=== PATIENT | male | born 1985 | race African-American/Black ===

== ENCOUNTER 2019-01-02 21:04 | Emergency (ER) | payer SELFPAY ==
[2019-01-02 21:26] VITALS: BP 116/72
--- NOTE | 2019-01-02 21:28 | Event Note ---
ED Screening Note Date of service: 01/02/19 Time: 21:26 ED Screening Note: This is a 33 y.o. M. that presents to the ER with abscess to right distal forearm x 3 days. Reports drainage Denies fever, chills, numbness or tingling This initial assessment/diagnostic orders/clinical plan/treatment(s) is/are subject to change based on patients health status, clinical progression and re- assessment by fellow clinical providers in the ED. Further treatment and workup at subsequent clinical providers discretion. Patient/guardian urged not to elope from the ED as their condition may be serious if not clinically assessed and managed. Initial orders include:
--- NOTE | 2019-01-02 22:20 | Emergency Department Report ---
ED General Adult HPI - General Chief complaint: Skin/Abscess/Foreign Body Stated complaint: SKIN INFECTION Time Seen by Provider: 01/02/19 21:25 Source: patient Mode of arrival: Ambulatory Limitations: No Limitations - History of Present Illness Initial comments: 33 yo male states that he has a boil on his R wrist that is swollen, red and has a discharge. He states that it has been present x 3 days. -: Gradual Location: right, upper extremity Radiation: distal Severity scale (0 -10): 10 Quality: aching Consistency: constant Improves with: none Worsens with: none Associated Symptoms: denies other symptoms Treatments Prior to Arrival: none - Related Data Previous Rx's Medication Instructions Recorded Last Taken Type cephALEXin [Keflex] 500 mg PO BID 10 Days #20 cap 01/02/19 Unknown Rx Allergies Allergy/AdvReac Type Severity Reaction Status Date / Time clindamycin Allergy Itching Verified 01/02/19 21:08 ED Review of Systems ROS: Stated complaint: SKIN INFECTION Other details as noted in HPI Constitutional: no symptoms reported Eyes: denies: eye pain, vision change ENT: denies: ear pain, throat pain, dental pain Respiratory: no symptoms reported Cardiovascular: denies: chest pain, palpitations, dyspnea on exertion Endocrine: no symptoms reported Gastrointestinal: denies: abdominal pain, nausea, vomiting Genitourinary: denies: urgency, dysuria, frequency Musculoskeletal: denies: back pain, joint swelling Skin: lesions, change in color. denies: rash Neurological: denies: headache, weakness, numbness, paresthesias Psychiatric: denies: anxiety, depression, auditory hallucinations Hematological/Lymphatic: denies: easy bleeding, easy bruising, swollen glands ED Past Medical Hx - Past Medical History Previous Medical History?: No Hx Hypertension: No Hx CVA: No Hx Heart Attack/AMI: No Hx Congestive Heart Failure: No Hx Diabetes: No Hx Deep Vein Thrombosis: No Hx Pulmonary Embolism: No Hx GERD: No Hx Liver Disease: No Hx Renal Disease: No Hx of Cancer: No Hx Sickle Cell Disease: No Hx Arthritis: No Hx Headaches / Migraines: No Hx Seizures: No Hx Kidney Stones: No Hx Psychiatric Treatment: No Hx Asthma: No Hx COPD: No - Surgical History Past Surgical History?: No - Social History Smoking Status: Never Smoker Substance Use Type: None - Medications Home Medications: Home Medications Medication Instructions Recorded Confirmed Last Taken Type cephALEXin [Keflex] 500 mg PO BID 10 Days #20 cap 01/02/19 Unknown Rx ED Physical Exam - General Limitations: No Limitations General appearance: alert, in no apparent distress, appears intoxicated - Head Head exam: Present: atraumatic, normocephalic, normal inspection - Eye Eye exam: Present: normal appearance, PERRL - ENT ENT exam: Present: normal exam, normal orophraynx - Neck Neck exam: Present: tenderness, full ROM - Respiratory Respiratory exam: Present: normal lung sounds bilaterally, respiratory distress - Cardiovascular Cardiovascular Exam: Present: regular rate, normal rhythm, normal heart sounds - GI/Abdominal GI/Abdominal exam: Present: soft. Absent: distended, tenderness - Extremities Exam Extremities exam: Present: normal inspection, other (R forearm redness and tenderness at wrist; medium-size round lesion at the doral wrist with diffuse eythema and warmth) - Back Exam Back exam: Present: normal inspection, full ROM - Neurological Exam Neurological exam: Present: alert, altered, oriented X3 - Psychiatric Psychiatric exam: Present: normal affect, normal mood - Skin Skin exam: Present: warm (lesion at right wrist) ED Course Vital Signs 01/02/19 21:22 Temperature 97.8 F Pulse Rate 81 Respiratory 18 Rate Blood Pressure 116/72 O2 Sat by Pulse 96 Oximetry ED Medical Decision Making - Medical Decision Making 3 yo male states that he has a boil on his R wrist that is swollen, red and has a discharge. He states that it has been present x 3 days. Pt was informed that his R wrist lesion is due to a cellulitis. He states that he is up to date on his Tetanus immun. The pt was instructed to take the antibiotics as directed and to and apply a warm compress 15-20 min twice a day to the affected area. Critical care attestation.: If time is entered above; I have spent that time in minutes in the direct care of this critically ill patient, excluding procedure time. ED Disposition Clinical Impression: Cellulitis Disposition: DC-01 TO HOME OR SELFCARE Is pt being admited?: No Does the pt Need Aspirin: No Condition: Stable Instructions: Cellulitis (ED) Additional Instructions: he pt was instructed to take the antibiotics as directed and to and apply a warm compress 15-20 min twice a day to the affected area. Prescriptions: cephALEXin [Keflex] 500 mg PO BID 10 Days #20 cap Referrals: [facility] [Outside] - 3-5 Days Time of Disposition: 22:27 Print Language: MALDIVIAN
== END 2019-01-02 22:35 | disposition home or self-care (01) ==
LOC: ED 21:04
DX: L03.113 Cellulitis of right upper limb (principal); Z88.1 Allergy status to other antibiotic agents

== ENCOUNTER 2019-06-20 10:08 | Emergency (ER) | payer BC ==
--- NOTE | 2019-06-20 11:15 | Emergency Department Report ---
- General Chief Complaint: Upper Respiratory Infection Stated Complaint: SOB,COUGH 5DAYS Time Seen by Provider: 06/20/19 10:58 Source: patient Mode of arrival: Ambulatory Limitations: No Limitations - History of Present Illness Initial Comments: 33 year old male with no significant past medical hx presents to ED c/o cough. Patient states his symptoms started about 5 years ago. Patient describes a productive cough with white sputum. He also reports shortness of breath and intermittent wheezing. Patient states that when he symptoms first started around Thursday he did have fever and body aches, but this has since resolved. He denies any rhinorrhea or nasal congestion. He denies any tobacco use. He denies any history of lung or heart disease. He reports no GI or symptoms. 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 Patient is on truvada daily but as prophylaxis to prevent HIV. He denies hx HIV. MD Complaint: cough -: days(s) (5 days ago ) - Related Data Previous Rx's Medication Instructions Recorded Last Taken Type cephALEXin [Keflex] 500 mg PO BID 10 Days #20 cap 01/02/19 Unknown Rx Albuterol INH(or & Nicu Only) 2 puff IH QID PRN #8.5 gram 06/20/19 Unknown Rx [ProAir HFA Inhaler] Azithromycin [Zithromax Z-ABNER] 0 mg PO DAILY #1 pack 06/20/19 Unknown Rx Benzonatate [Tessalon Perles] 100 mg PO Q8HR #30 capsule 06/20/19 Unknown Rx predniSONE [Deltasone] 50 mg PO QDAY #5 tab 06/20/19 Unknown Rx Allergies Allergy/AdvReac Type Severity Reaction Status Date / Time clindamycin Allergy Itching Verified 06/20/19 10:16 ED Review of Systems ROS: Stated complaint: SOB,COUGH 5DAYS Other details as noted in HPI Constitutional: denies: chills, fever Respiratory: cough, shortness of breath, wheezing Cardiovascular: denies: chest pain Gastrointestinal: denies: nausea, vomiting, diarrhea Genitourinary: denies: urgency, dysuria, frequency, hematuria Neurological: denies: headache, weakness, numbness, paresthesias, abnormal gait Psychiatric: denies: anxiety, depression ED Past Medical Hx - Past Medical History Hx Hypertension: No Hx CVA: No Hx Heart Attack/AMI: No Hx Congestive Heart Failure: No Hx Diabetes: No Hx Deep Vein Thrombosis: No Hx Pulmonary Embolism: No Hx GERD: No Hx Liver Disease: No Hx Renal Disease: No Hx Sickle Cell Disease: No Hx Arthritis: No Hx Headaches / Migraines: No Hx Seizures: No Hx Kidney Stones: No Hx Psychiatric Treatment: No Hx Asthma: No Hx COPD: No - Social History Smoking Status: Never Smoker Substance Use Type: None - Medications Home Medications: Home Medications Medication Instructions Recorded Confirmed Last Taken Type cephALEXin [Keflex] 500 mg PO BID 10 Days #20 cap 01/02/19 Unknown Rx Albuterol INH(or & Nicu Only) 2 puff IH QID PRN #8.5 gram 06/20/19 Unknown Rx [ProAir HFA Inhaler] Azithromycin [Zithromax Z-ABNER] 0 mg PO DAILY #1 pack 06/20/19 Unknown Rx Benzonatate [Tessalon Perles] 100 mg PO Q8HR #30 capsule 06/20/19 Unknown Rx predniSONE [Deltasone] 50 mg PO QDAY #5 tab 06/20/19 Unknown Rx ED Physical Exam - General Limitations: No Limitations General appearance: alert, in no apparent distress - Head Head exam: Present: atraumatic, normocephalic, normal inspection - Eye Eye exam: Present: normal appearance, PERRL, EOMI Pupils: Present: normal accommodation - ENT ENT exam: Present: normal exam, normal orophraynx, mucous membranes moist - Neck Neck exam: Present: normal inspection, full ROM. Absent: meningismus - Respiratory Respiratory exam: Present: normal lung sounds bilaterally. Absent: respiratory distress - Cardiovascular Cardiovascular Exam: Present: regular rate, normal rhythm, normal heart sounds - GI/Abdominal GI/Abdominal exam: Present: soft. Absent: distended, tenderness - Back Exam Back exam: Present: normal inspection - Neurological Exam Neurological exam: Present: alert, oriented X3, CN II-XII intact - Skin Skin exam: Present: intact ED Course Vital Signs 06/20/19 10:25 Temperature 98.3 F Pulse Rate 87 Respiratory 16 Rate Blood Pressure 121/73 O2 Sat by Pulse 96 Oximetry ED Medical Decision Making - Radiology Data Radiology results: report reviewed Patient: TRACI MAHER MR#: [id number] : 1985 Acct:[id number] Age/Sex: 33 / M ADM Date: 06/20/19 Loc: ED Attending Dr: Ordering Physician: JOSÉ MIGUEL DUCKWORTH Date of Service: 06/20/19 Procedure(s): XR chest routine 2V Accession Number(s): [id number] cc: JOSÉ MIGUEL DUCKWORTH Fluoro Time In Minutes: CHEST PA AND LATERAL VIEWS INDICATION: cough/sob/ no fever. COMPARISON: None FINDINGS: Support devices: None Heart: Normal Lungs/Pleura: No acute pulmonary or pleural findings. IMPRESSION: 1. No significant abnormality. Signer Name: Julien Johnson MD Signed: 06/20/2019 12:35 PM Workstation Name: [id number] Transcribed By: TM Dictated By: Julien Johnson MD Electronically Authenticated By: Julien Johnson MD Signed Date/Time: 06/20/19 1235 DD/ 1235 TD/TT: Critical care attestation.: If time is entered above; I have spent that time in minutes in the direct care of this critically ill patient, excluding procedure time. ED Disposition Clinical Impression: Bronchitis Disposition: DC-01 TO HOME OR SELFCARE Is pt being admited?: No Does the pt Need Aspirin: No Condition: Stable Instructions: Acute Bronchitis (ED) Additional Instructions: Recommend that you take medication as prescribed. Recommend lots of fluids. Recommend tylenol or motrin for pain or if you develop fever (100.5) or higher. If you are concerned about COVID and want testing please contact your PCP or [facility] health department. If your symptoms worsens return to ED. Prescriptions: predniSONE [Deltasone] 50 mg PO QDAY #5 tab Albuterol INH(or & Nicu Only) [ProAir HFA Inhaler] 2 puff IH QID PRN #8.5 gram PRN Reason: Shortness Of Breath Benzonatate [Tessalon Perles] 100 mg PO Q8HR #30 capsule Azithromycin [Zithromax Z-ABNER] 0 mg PO DAILY #1 pack Referrals: PRIMARY CARE, [Primary Care Provider] - 3-5 Days Forms: Work/School Release Form(ED) Time of Disposition: 13:17
--- NOTE | 2019-06-20 12:40 | XRay Report ---
CHEST PA AND LATERAL VIEWS INDICATION: cough/sob/ no fever. COMPARISON: None FINDINGS: Support devices: None Heart: Normal Lungs/Pleura: No acute pulmonary or pleural findings. IMPRESSION: 1. No significant abnormality. Signer Name: Julien Johnson MD Signed: 06/20/2019 12:35 PM Workstation Name: [id number]
[2019-06-20 13:53] VITALS: BP 118/71
== END 2019-06-20 13:51 | disposition home or self-care (01) ==
LOC: ED 10:08
DX: J40 Bronchitis, not specified as acute or chronic (principal); Z79.2 Long term (current) use of antibiotics; Z79.899 Other long term (current) drug therapy; Z88.1 Allergy status to other antibiotic agents
CPT/HCPCS: 71046